=== PATIENT | male | born 1930 ===

== ENCOUNTER 2017-12-06 07:32 | Day surgery (SDC) | payer MEDICARE ==
--- NOTE | 2017-12-06 10:42 | CP.SDSHP ---
Same Day Surgery H & P - History Proposed Procedure: egd Pre-Op Diagnosis: gastric ulcer surveillance - Previous Medical/Surgical History Cardiac: Hypertension Comments: gastric ulcer, BPH Previous Surgical History: hernia repair - Allergies Allergies: Allergies Penicillins Allergy (Verified 12/06/17 08:12) RASH - Current Medications Current Medications: reviewed, per reconciliation - Physical Exam General Appearance: wdwn nad Vital Signs: Vital Signs 12/06/17 07:50 Temperature 98.6 F Pulse Rate 62 Respiratory 18 Rate Blood Pressure 147/59 L O2 Sat by Pulse 98 Oximetry Mental Status: Alert & Oriented x3 Heart: WNL Lungs: WNL GI: WNL - {Optional Preform as Required} Abdomen: WNL - Impression Impression: gastric ulcer history, with bleed Pt. Evaluated Today:Candidate for Anesthesia & Procedure: Yes - Date & Time Date: 12/06/17 Time: 10:42 Short Stay Discharge - Short Stay Discharge Admitting Diagnosis/Reason for Visit: GASTRIC ULCER Disposition: HOME/ ROUTINE
[2017-12-06] MEDS ORDERED: Propofol 10 mg/ml Inj (20 ML) ONE (10:45)
[2017-12-06] MEDS ORDERED: Lactated Ringer's 1,000 ML IV ONE (10:50)
[2017-12-06 11:49] VITALS: TEMP 97.1
[2017-12-06 11:56] VITALS: O2SAT 99
[2017-12-06 12:59] VITALS: BP 152/64; PULSE 54; RESP 17
== END 2017-12-06 12:45 | disposition home or self-care (01) ==
LOC: C.ENDO 07:32
PROVIDERS: ATTEND Internal Medicine Gastroenterology
DX: K25.9 Gastric ulcer, unspecified as acute or chronic, without hemorrhage or perforation (principal); K44.9 Diaphragmatic hernia without obstruction or gangrene; K29.80 Duodenitis without bleeding
CPT/HCPCS: 43235; J2704; J7120